=== PATIENT | male | born 1945 | race American Indian/Alaskan Native ===

== ENCOUNTER 2019-02-27 06:20 | Day surgery (SDC) | payer MEDICARE ==
[2019-02-27] MEDS ORDERED: ASPIRIN EC 325 MG TAB PO ONE (06:46)
[2019-02-27] MEDS ORDERED: SODIUM CHLORIDE 0.9% 500 ML 500 ML IV SCH (07:00)
[2019-02-27 07:13] LABS: Basophils # (Auto) 0.1 K/mm3 (0.0-0.1); Basophils % (Auto) 1.7 % (0.0-1.8); Eosinophils # (Auto) 0.5 K/mm3 (0.0-0.4); Eosinophils % (Auto) 9.3 % (0.0-4.3); Hematocrit 41.4 % (35.5-45.6); Hemoglobin 14.3 gm/dl (11.8-15.2); Lymphocytes # (Auto) 1.5 K/mm3 (1.2-5.4); Lymphocytes % (Auto) 26.5 % (13.4-35.0); Mean Corpuscular HGB Conc 35 % (32-34); Mean Corpuscular Volume 90 fl (84-94); Monocytes # (Auto) 0.8 K/mm3 (0.0-0.8); Monocytes % (Auto) 13.6 % (0.0-7.3); Platelet Count 229 K/mm3 (140-440); Red Blood Count 4.61 M/mm3 (3.65-5.03); Red Cell Distribution Width 13.6 % (13.2-15.2)
[2019-02-27 07:24] LABS: INR 0.96 (0.87-1.13)
[2019-02-27 07:25] LABS: BUN/Creatinine Ratio 20; Blood Urea Nitrogen 22 mg/dL (9-20); Calcium 9.3 mg/dL (8.4-10.2); Hemolysis Index 15; Partial Thromboplastin Time 28.1 Sec. (24.2-36.6)
[2019-02-27] MEDS ORDERED: HEPARIN/NS 5000 UNIT/500ML 1,000 ML IR ONE (08:10)
[2019-02-27] MEDS: MIDAZOLAM 2 MG/2 ML INJ ONE ×2 (08:54→09:02)
[2019-02-27] MEDS: fentaNYL 100 MCG/2 ML INJ ONE ×2 (08:54→09:02)
[2019-02-27] MEDS: VERAPAMIL 5 MG/2 ML INJ ONE ×3 (08:55→09:09)
[2019-02-27] MEDS: LIDOCAINE (2%) 20 MG/1 ML VIAL 20 ML MDV INFILTRATI ONE ×3 (08:55→09:07)
[2019-02-27] MEDS: NITROGLYCERIN SYRINGE 3 ML ONE ×2 (08:55→09:09)
[2019-02-27] MEDS: HEPARIN 10,000 UNITS/10 ML VIAL ONE ×3 (08:56→09:09)
[2019-02-27] MEDS ORDERED: LIDOCAINE PF 100 MG/5 ML (CARDIAC SYRINGE) IV ONE ×2 (09:15→10:06)
[2019-02-27] MEDS ORDERED: EPINEPHrine 1:10,000 1 MG/10 ML SYRINGE ONE ×4 (09:15→09:32)
[2019-02-27] MEDS ORDERED: PHENYLEPHRINE/NS 1,000 MCG/10 ML SYRINGE (OR USE) IV ONE (09:21)
[2019-02-27] MEDS ORDERED: traMADol 50 MG TAB PO PRN (09:50)
--- NOTE | 2019-02-27 09:56 | Short Stay Summary ---
Short Stay Documentation Date of service: 02/27/19 - History H&P: obtained from office - Allergies and Medications Current Medications: Allergies No Known Allergies Allergy (Verified 02/27/19 06:45) Home Medications Medication Instructions Recorded Confirmed Last Taken Type Aspirin [Adult Aspirin] 81 mg PO DAILY 02/27/19 02/27/19 02/26/19 History AtorvaSTATin [Lipitor] 40 mg PO DAILY 02/27/19 02/27/19 02/26/19 History Clonidine HCl [Catapres] 0.3 mg PO DAILY 02/27/19 02/27/19 02/26/19 History Losartan Potassium 100 mg PO DAILY 02/27/19 02/27/19 02/26/19 History Triamter/Hctz 37.5-25 mg 1 tab PO DAILY 02/27/19 02/27/19 02/26/19 History Triamter/Hctz 37.5-25 mg 1 tab PO QDAY 02/27/19 02/27/19 02/26/19 History [Maxzide-25] carvediloL [Coreg] 12.5 mg PO BID 02/27/19 02/27/19 02/27/19 History hydrALAZINE [Apresoline] 25 mg PO Q8HR 02/27/19 02/27/19 02/26/19 History metFORMIN [Glucophage] 500 mg PO BID 02/27/19 02/27/19 02/26/19 History Active Medications Sodium Chloride (Nacl 0.9% 500 Ml) 500 mls @ 50 mls/hr IV DIRECT MINDI Stop: 02/27/19 16:59 Last Admin: 02/27/19 08:17 Dose: 50 mls/hr Documented by: - Brief post op/procedure progress note Date of procedure: 02/27/19 Pre-op diagnosis: sob Post-op diagnosis: same Procedure: see report, three vessel disease Anesthesia: local Estimated blood loss: none Pathology: none - Disposition Condition at discharge: Good Disposition: [id number] TO HOME OR SELFCARE - Discharge Diagnoses (1) Hypertension Status: Chronic Qualifiers: Hypertension type: essential hypertension Qualified Code(s): I10 - Essential (primary) hypertension (2) Hyperlipemia, mixed Status: Chronic (3) Diabetes mellitus Status: Chronic Qualifiers: Diabetes mellitus type: type 2 Diabetes mellitus watermelon inspector insulin use: with shelter use Diabetes mellitus complication status: with circulatory complication Diabetes mellitus complication detail: with other circulatory complications Qualified Code(s): E11.59 - Type 2 diabetes mellitus with other circulatory complications; Z79.4 - long-term (current) use of insulin (4) CAD (coronary artery disease) Status: Chronic Qualifiers: Coronary Disease-Associated Artery/Lesion type: [place] artery [place] vs. transplanted heart: [place] heart Associated angina: with stable angina Qualified Code(s): I25.118 - Atherosclerotic heart disease of [place] coronary artery with other forms of angina pectoris (5) COPD (chronic obstructive pulmonary disease) Status: Chronic Qualifiers: COPD type: unspecified COPD Qualified Code(s): J44.9 - Chronic obstructive pulmonary disease, unspecified (6) SOBOE (shortness of breath on exertion) Status: Chronic (7) Abnormal cardiovascular stress test Status: Acute Short Stay Discharge Plan Activity: advance as tolerated Diet: low fat, low cholesterol, low salt, diabetic Special Instructions: hold Metformin (for two days) Follow up with: NATI RODRIGUEZ MD [Primary Care Provider] - 7 Days Prescriptions: ISOSORBIDE MONOnitrate [Imdur ER] 30 mg PO QDAY #30 tablet
[2019-02-27] MEDS ORDERED: ATROPINE 0.1% (1 MG/10 ML) CARDIAC SYRINGE ONE (10:03)
--- NOTE | 2019-02-27 10:09 | Cardiac Catherization Report ---
LEFT HEART CATHETERIZATION ORDERING PHYSICIAN: Dr. Juju Youssef. CLINICAL INFORMATION: A 73-year-old -[place] gentleman with COPD, hypertension, diabetes, cholesterol with cardiac PET shows inferolateral ischemia with decreased EF on stress with shortness of breath for the last 6 months despite medical therapy, on beta scott and blood pressure control, who is here for left heart catheterization. Left heart catheterization was done with moderate sedation. Total sedation time 15 minutes, started 9:07 a.m., finished at 9:22 a.m. DESCRIPTION OF PROCEDURE: Procedure was done via the right radial artery, sterile technique, local anesthesia, 6-Tristanian radial sheath inserted. PROCEDURE FINDINGS: Left system engaged with JL3.5 catheter. Left main is large and proximal mid to distal diffuse disease, 60%, then bifurcates into large LAD, proximal 90%. The rest of LAD is patent. Diagonal 1 is a small to medium caliber vessel, patent. Circumflex is a medium caliber vessel, dominant that is patent with mild luminal irregularities. OM1 is a medium caliber vessel, proximal 80%. OM2 is a medium caliber vessel, patent. Circ and AV groove is patent with mild luminal irregularities and small PDA, PLV. There are collaterals feeding into the distal RCA, which is small caliber, less than 2 mm. RCA is a small caliber vessel, proximal 90%, mid 100%. LV gram done in DIALLO and AMBROCIO view shows normal LV function, LVEDP of 25 mmHg, LV is 169 mmHg. Aortic is 165/89 mmHg. No gradient across the aortic valve on pullback. The 5-Tristanian catheters all taken over guidewire. The 6-Tristanian radial sheath was discontinued. Radial band applied. No hematoma. No bleeding. SUMMARY: Significant triple vessel disease, left main distal 60%, LAD large caliber vessel, proximal 90%. Rest of the vessel is patent. Diagonal 1 patent. Circumflex dominant vessel, patent with mild luminal irregularities. OM1, medium caliber, proximal 80%. OM2 patent. LPDA is small caliber vessel, patent with mild luminal irregularities. Circumflex OM1 medium caliber vessel, proximal 80%. OM2 patent. RCA 100% with left to right collaterals, small vessel, normal LV function. The patient will be sent to [place] for bypass surgery. Continue home medications. Hold metformin for 48 hours. Add Imdur to regimen of medications. [facility]# [id number] [facility]
[2019-02-27 11:33] VITALS: BP 171/84
== END 2019-02-27 12:25 | disposition home or self-care (01) ==
LOC: CATHLABREC 06:20
PROVIDERS: ATTEND Internal Medicine
DX: R07.89 Other chest pain (principal); R06.02 Shortness of breath; R94.39 Abnormal result of other cardiovascular function study; J44.9 Chronic obstructive pulmonary disease, unspecified; I10 Essential (primary) hypertension; E11.9 Type 2 diabetes mellitus without complications; E78.2 Mixed hyperlipidemia; I25.10 Atherosclerotic heart disease of native coronary artery without angina pectoris; G47.30 Sleep apnea, unspecified; Z98.890 Other specified postprocedural states; Z87.891 Personal history of nicotine dependence; Z79.82 Long term (current) use of aspirin; Z79.84 Long term (current) use of oral hypoglycemic drugs
CPT/HCPCS: 36415; 80048; 85025; 85610; 85730; 93005; 93010; 93458; 99156; C1894; J0171; J0461; J1644; J2001; J2250; J3010; J7040; J2370; Q9967